=== PATIENT | male | born 1990 | race Caucasian/White ===

== ENCOUNTER 2018-03-24 17:24 | Inpatient (IN) | payer OTHER ==
[~2018-03-24] VITALS: Ht 177.8 cm; Wt 98.9 kg
[2018-03-24 18:12] LABS: BASOPHIL % 0.3 % (0-2); PLATELET COUNT 245 x10^3mcL (130-400); RED CELL DISTRIBUTION WIDTH 12.8 % (11.5-14.5)
[2018-03-24 18:21] LABS: CALCIUM 9.2 mg/dL (8.5-10.1); CARBON DIOXIDE 26.9 mmol/L (21-32); CHLORIDE SERUM 103 mmol/L (98-107); CREATININE SERUM 1.1 mg/dL (0.7-1.3); GFR1 > 60 mL/min; GLUCOSE SERUM 128 mg/dL (74-106); POTASSIUM SERUM 3.6 mmol/L (3.5-5.1); SODIUM SERUM 142 mmol/L (136-145)
[2018-03-24 18:26] LABS: ALBUMIN 4.3 g/dL (3.4-5.0); ALKALINE PHOSPHATASE 46 U/L (46-116); ALT/SGPT 35 U/L (16-63); AST/SGOT 18 U/L (15-37); BILIRUBIN TOTAL 0.46 mg/dL (0.20-1.00); TOTAL PROTEIN, SERUM 7.4 g/dL (6.4-8.2)
[2018-03-24 20:52] LABS: FREE T4 1.08 ng/dL (0.76-1.46); T4(THYROXINE) 11.2 ug/dL (4.7-13.3)
[2018-03-24 21:03] LABS: T3 TOTAL 1.49 ng/mL
[2018-03-24 21:20] VITALS: BP 118/72
[2018-03-24 21:26] LABS: MAGNESIUM 2.2 mg/dL (1.8-2.4); PHOSPHOROUS 4.2 mg/dL (2.5-4.9)
[2018-03-24 21:27] LABS: CHOLESTEROL/HDL RATIO 5.8
[2018-03-24 21:30] VITALS: Ht 177.8 cm; Wt 98.9 kg
[2018-03-24 21:57] LABS: URIC ACID 6.6 mg/dL (3.5-7.2)
[2018-03-24 22:02] LABS: UA SPECIFIC GRAVITY >=1.030 (1.005-1.035); microscopic required? YES; urine erythrocyte NEGATIVE (NEGATIVE)
[2018-03-24 22:11] LABS: AMPHETAMINE QUAL UR NONE DETECTED (See below)
[2018-03-25 06:20] VITALS: BP 100/61
[2018-03-25 08:35] LABS: BASOPHIL % 0.5 % (0-2); PLATELET COUNT 220 x10^3mcL (130-400); RED CELL DISTRIBUTION WIDTH 13.6 % (11.5-14.5)
[2018-03-25 08:56] LABS: CALCIUM 8.4 mg/dL (8.5-10.1); CHLORIDE SERUM 104 mmol/L (98-107); CREATININE SERUM 0.9 mg/dL (0.7-1.3); GFR1 > 60 mL/min; GLUCOSE SERUM 88 mg/dL (74-106); SODIUM SERUM 140 mmol/L (136-145)
[2018-03-25 09:00] LABS: MAGNESIUM 2.1 mg/dL (1.8-2.4); PHOSPHOROUS 4.1 mg/dL (2.5-4.9)
[2018-03-25 10:00] VITALS: BP 125/77
[2018-03-25 18:20] VITALS: BP 122/82
[2018-03-25 21:42] VITALS: BP 119/76
[2018-03-26 05:48] VITALS: BP 104/54
[2018-03-26 07:19] LABS: CALCIUM 8.3 mg/dL (8.5-10.1); CARBON DIOXIDE 27.6 mmol/L (21-32); CHLORIDE SERUM 106 mmol/L (98-107); CREATININE SERUM 1.1 mg/dL (0.7-1.3); GFR1 > 60 mL/min; GLUCOSE SERUM 95 mg/dL (74-106); MAGNESIUM 2.1 mg/dL (1.8-2.4); PHOSPHOROUS 4.1 mg/dL (2.5-4.9); POTASSIUM SERUM 4.6 mmol/L (3.5-5.1); SODIUM SERUM 143 mmol/L (136-145)
[2018-03-26 07:47] LABS: BASOPHIL % 0.4 % (0-2); PLATELET COUNT 195 x10^3mcL (130-400); RED CELL DISTRIBUTION WIDTH 13.2 % (11.5-14.5)
[2018-03-26 08:51] VITALS: BP 116/76
[2018-03-26] MEDS ORDERED: AMOXICILLIN500 M1 PO (09:52)
[2018-03-26] MEDS ORDERED: CLARITHROMYCIN500 M1 PO (09:53)
[2018-03-26] MEDS ORDERED: GOOD SENSE OMEP20 MG PO (09:54)
[2018-03-26 11:22] VITALS: BP 116/76
== END 2018-03-26 16:15 | disposition home or self-care (01) ==
LOC: ED 17:24 → MU 19:45
PROVIDERS: Emergency Medicine; Family Medicine; Internal Medicine Gastroenterology
PROC: 0DB68ZX Excision of Stomach, Via Natural or Artificial Opening Endoscopic, Diagnostic (ICD-10-PCS; principal; 2018-03-25 10:00)
DX: K80.50 Calculus of bile duct without cholangitis or cholecystitis without obstruction (principal); N17.0 Acute kidney failure with tubular necrosis; J44.1 Chronic obstructive pulmonary disease with (acute) exacerbation; K25.9 Gastric ulcer, unspecified as acute or chronic, without hemorrhage or perforation; F12.10 Cannabis abuse, uncomplicated; R00.1 Bradycardia, unspecified; E78.5 Hyperlipidemia, unspecified; E66.9 Obesity, unspecified; Z68.31 Body mass index [BMI] 31.0-31.9, adult; Z71.3 Dietary counseling and surveillance; F17.210 Nicotine dependence, cigarettes, uncomplicated; K21.9 Gastro-esophageal reflux disease without esophagitis; Z80.49 Family history of malignant neoplasm of other genital organs; Z82.49 Family history of ischemic heart disease and other diseases of the circulatory system
CPT/HCPCS: 43235; 72072; 83880; 84439; 86580; 87046; 87046-59; J1200; J1610; J2250; J2310; J3010; J3490; J7030; Q0092; Q9967

== ENCOUNTER 2018-03-30 16:33 | Emergency (ER) | payer OTHER ==
[~2018-03-30] VITALS: Ht 180.3 cm; Wt 99.8 kg
[~2018-03-30 16:33] MED LIST: AMOXICILLIN500 M1 PO; CLARITHROMYCIN500 M1 PO; GOOD SENSE OMEP20 MG PO
[2018-03-30 16:45] VITALS: Ht 180.3 cm; Wt 99.8 kg
[2018-03-30 17:25] LABS: BASOPHIL % 0.6 % (0-2); PLATELET COUNT 232 x10^3mcL (130-400); RED CELL DISTRIBUTION WIDTH 12.8 % (11.5-14.5)
[2018-03-30 17:45] LABS: FREE T4 0.92 ng/dL (0.76-1.46); FREE THYROXINE INDEX 2.7 ug/dL (1.4-4.5); T4(THYROXINE) 8.2 ug/dL (4.7-13.3)
[2018-03-30 17:51] LABS: T3 TOTAL 1.54 ng/mL
[2018-03-30 18:30] LABS: CALCIUM 8.7 mg/dL (8.5-10.1); CARBON DIOXIDE 23.4 mmol/L (21-32); CHLORIDE SERUM 105 mmol/L (98-107); GFR1 > 60 mL/min; GLUCOSE SERUM 121 mg/dL (74-106); POTASSIUM SERUM 3.4 mmol/L (3.5-5.1); SODIUM SERUM 141 mmol/L (136-145)
[2018-03-30 18:35] LABS: ALBUMIN 4.1 g/dL (3.4-5.0); ALKALINE PHOSPHATASE 51 U/L (46-116); ALT/SGPT 43 U/L (16-63); AST/SGOT 22 U/L (15-37); BILIRUBIN TOTAL 0.24 mg/dL (0.20-1.00); CHOLESTEROL 180 mg/dL (<200); LIPASE 94 IU/L (73-393); TOTAL PROTEIN, SERUM 7.3 g/dL (6.4-8.2)
[2018-03-30 18:38] LABS: CHOLESTEROL/HDL RATIO 5.8; HDL CHOLESTEROL 31 mg/dL (40-60); TRIGLYCERIDES 362 mg/dL (<150)
[2018-03-30 19:04] LABS: UA SPECIFIC GRAVITY >=1.030 (1.005-1.035); microscopic required? YES; urine erythrocyte NEGATIVE (NEGATIVE)
[2018-03-30 19:12] LABS: AMPHETAMINE QUAL UR NONE DETECTED (See below)
[2018-03-30 19:48] VITALS: BP 128/71
== END 2018-03-30 19:48 | disposition home or self-care (01) ==
LOC: ED 16:33
PROVIDERS: Specialist
DX: T67.5XXA Heat exhaustion, unspecified, initial encounter (principal); R42 Dizziness and giddiness; F17.210 Nicotine dependence, cigarettes, uncomplicated; X58.XXXA Exposure to other specified factors, initial encounter; Y93.89 Activity, other specified; Y92.89 Other specified places as the place of occurrence of the external cause; Y99.8 Other external cause status
CPT/HCPCS: 83880; 84439; J7030; Q0092